=== PATIENT | male | born 1945 | race Caucasian/White ===

== ENCOUNTER 2024-06-10 05:28 | Inpatient (IN) | payer OTHER, SELFPAY ==
[2024-06-10] VITALS (55 sets, daily range): BP systolic 75–206; BP diastolic 49–184; BMI 30.9
[2024-06-10] MEDS: VERSED 5 MG IV (04:05)
--- NOTE | 2024-06-10 04:27 | ED.GENMED ---
History of Present Illness
<CHRIST Peck - Last Filed: 06/10/24 07:02>
General
Chief Complaint: Heart Rate Problem
Time Seen by Provider: 06/10/24 03:55
History of Present Illness
History of Present Illness:
Pt is a 78 yo M who presents to the emergency department via EMS for chest pain and shortness of breath. Pt was in heart block type 2 second degree. Pt was paced by EMS upon arrival to the emergency department.
Phy Exam
<CHRIST Peck - Last Filed: 06/10/24 07:02>
General Physical Exam
General Presentation: severe distress
General age: appears stated age
General Skin: warm
General Habitus: normal
General Mental: alert
General Hydration: appears well hydrated
Course
<CHRIST Peck - Last Filed: 06/10/24 07:02>
Orders/Labs/Results
Orders:
Orders
06/10/24 03:56
Cardiac Monitoring- Treatment ONCE
EKG- Treatment ONCE
06/10/24 03:58
Midazolam HCl [Versed] 5 mg .ROUTE .STK-MED ONE
06/10/24 04:00
Electrocardiogram (*1) Q3H
Reason for Study: Chest Pain
Midazolam HCl [Versed] 5 mg IV NOW STA
06/10/24 04:04
Midazolam HCl [Versed] 5 mg IV NOW STA
06/10/24 04:10
DOPamine 400 MG/D5W 250 ML [DOPamine 400 MG] 400 mg in 250 ml .ROUTE .STK-MED
06/10/24 04:11
Complete Blood Count/With Diff Urgent
Comprehensive Metabolic Panel Urgent
Magnesium Urgent
NT-proBNP Urgent
PTT Urgent
Prothrombin Time Urgent
TSH Urgent
Troponin I Urgent
06/10/24 04:15
Straight cath- Treatment ONCE
Straight Cath As Directed
Frequency: One time now
06/10/24 04:17
Urinalysis Reflex To Culture Urgent
Date Specimen was Collected: 06/10/24
Time Specimen was Collected: 04:15
Urine Drug Abuse Screen Urgent
Date Specimen was Collected: 06/10/24
Time Specimen was Collected: 04:15
Urine Microscopic Reflex Cult Urgent
Urine Culture Urgent
KEELY Source: U
Specimen Description:
Date Specimen was Collected: 06/10/24
Time Specimen was Collected: 04:15
06/10/24 04:28
HYDROmorphone [Dilaudid] 0.5 mg IV NOW STA
06/10/24 04:38
Bedside Glucose- Treatment ONCE
06/10/24 04:45
DOPamine 400 MG/D5W 250 ML [DOPamine 400 MG] 400 mg in 250 ml IV PER PROTOCOL
Initial dose in mcg/kg/min, then titrate:: 5
Titrate to keep:: Other
Titrate to keep other:: sbp >90
Titrate by mcg/kg/min:: 1-2 mcg/kg/min
Frequency of titrations (minutes):: 15
Maximum dose in ICU in mcg/kg/min:: 20
Maximum dose in IMU in mcg/kg/min:: 10
Begin to taper infusion when:: Remained at goal for 4hrs
Taper by mcg/kg/min:: 1-2 mcg/kg/min
Frequency of taper (minutes) if patient maintains goal:: 30
Taper to off?: Yes
If infusion off & no longer maintaining goal:: Contact Provider
06/10/24 05:00
Heparin 1000 Units/500 ml [Heparin] 1,000 units in 500 ml .ROUTE .STK-MED
Lidocaine HCl/Pf [Xylocaine-Mpf 1% Vial] 100 mg .ROUTE .STK-MED ONE
Abnormal Lab Results
06/10/24 06/10/24 06/10/24
04:11 04:17 04:38
RBC 4.26 L 10^6/uL
(4.70-6.10)
Hgb 12.7 L g/dL
(13.0-18.0)
Hct 38.3 L %
(39.0-52.0)
Plt Count 97 L 10^3/uL
(130-400)
Lymphocytes % 18.4 L %
(20.5-51.1)
Carbon Dioxide 21 L mmol/L
(22-30)
BUN 30 H mg/dl
(9-20)
Creatinine 2.1 H mg/dL
(0.7-1.3)
Glucose 155 H mg/dl
(70-99)
TSH 0.08 L uIU/ml
(0.47-4.68)
Ur Occult Blood Reflex 4+ A
(Negative)
Urine RBC >100 A /HPF
(0-2)
Urine WBC (Reflex) 11-15 A /HPF
(0-5)
Urine Bacteria (Reflex) Moderate A
(Negative)
Urine Albumin (Reflex) 1+ A
(Neg - Trace)
POC Glucose 150 H mg/dl
(70-99)
06/10/24 04:11
06/10/24 04:11
Vital Signs
Initial and Last Documented VS:
Initial Vital Signs
Temp Resp Pulse Ox
97.2 F 20 99
06/10/24 04:00 06/10/24 04:00 06/10/24 04:00
Last Documented Vital Signs
Temp Pulse Resp BP Pulse Ox
97.2 F 80 36 114/57 100
06/10/24 04:00 06/10/24 04:40 06/10/24 04:40 06/10/24 04:40 06/10/24 04:15
<Rivas Cummings, DO - Last Filed: 06/10/24 04:33>
Orders/Labs/Results
Orders:
Orders
06/10/24 03:56
Cardiac Monitoring- Treatment ONCE
EKG- Treatment ONCE
06/10/24 03:58
Midazolam HCl [Versed] 5 mg .ROUTE .STK-MED ONE
06/10/24 04:00
Electrocardiogram (*1) Q3H
Reason for Study: Chest Pain
Midazolam HCl [Versed] 5 mg IV NOW STA
06/10/24 04:04
Midazolam HCl [Versed] 5 mg IV NOW STA
06/10/24 04:10
DOPamine 400 MG/D5W 250 ML [DOPamine 400 MG] 400 mg in 250 ml .ROUTE .STK-MED
06/10/24 04:11
Complete Blood Count/With Diff Urgent
Comprehensive Metabolic Panel Urgent
Magnesium Urgent
NT-proBNP Urgent
PTT Urgent
Prothrombin Time Urgent
TSH Urgent
Troponin I Urgent
06/10/24 04:15
Straight cath- Treatment ONCE
Straight Cath As Directed
Frequency: One time now
06/10/24 04:17
Urinalysis Reflex To Culture Urgent
Date Specimen was Collected: 06/10/24
Time Specimen was Collected: 04:15
Urine Drug Abuse Screen Urgent
Date Specimen was Collected: 06/10/24
Time Specimen was Collected: 04:15
Urine Microscopic Reflex Cult Urgent
Urine Culture Urgent
KEELY Source: U
Specimen Description:
Date Specimen was Collected: 06/10/24
Time Specimen was Collected: 04:15
06/10/24 04:28
HYDROmorphone [Dilaudid] 0.5 mg IV NOW STA
06/10/24 04:38
Bedside Glucose- Treatment ONCE
06/10/24 04:45
DOPamine 400 MG/D5W 250 ML [DOPamine 400 MG] 400 mg in 250 ml IV PER PROTOCOL
Initial dose in mcg/kg/min, then titrate:: 5
Titrate to keep:: Other
Titrate to keep other:: sbp >90
Titrate by mcg/kg/min:: 1-2 mcg/kg/min
Frequency of titrations (minutes):: 15
Maximum dose in ICU in mcg/kg/min:: 20
Maximum dose in IMU in mcg/kg/min:: 10
Begin to taper infusion when:: Remained at goal for 4hrs
Taper by mcg/kg/min:: 1-2 mcg/kg/min
Frequency of taper (minutes) if patient maintains goal:: 30
Taper to off?: Yes
If infusion off & no longer maintaining goal:: Contact Provider
06/10/24 05:00
Heparin 1000 Units/500 ml [Heparin] 1,000 units in 500 ml .ROUTE .STK-MED
Lidocaine HCl/Pf [Xylocaine-Mpf 1% Vial] 100 mg .ROUTE .STK-MED ONE
Abnormal Lab Results
06/10/24 06/10/24 06/10/24
04:11 04:17 04:38
RBC 4.26 L 10^6/uL
(4.70-6.10)
Hgb 12.7 L g/dL
(13.0-18.0)
Hct 38.3 L %
(39.0-52.0)
Plt Count 97 L 10^3/uL
(130-400)
Lymphocytes % 18.4 L %
(20.5-51.1)
Carbon Dioxide 21 L mmol/L
(22-30)
BUN 30 H mg/dl
(9-20)
Creatinine 2.1 H mg/dL
(0.7-1.3)
Glucose 155 H mg/dl
(70-99)
TSH 0.08 L uIU/ml
(0.47-4.68)
Ur Occult Blood Reflex 4+ A
(Negative)
Urine RBC >100 A /HPF
(0-2)
Urine WBC (Reflex) 11-15 A /HPF
(0-5)
Urine Bacteria (Reflex) Moderate A
(Negative)
Urine Albumin (Reflex) 1+ A
(Neg - Trace)
POC Glucose 150 H mg/dl
(70-99)
06/10/24 04:11
06/10/24 04:11
Vital Signs
Initial and Last Documented VS:
Initial Vital Signs
Temp Resp Pulse Ox
97.2 F 20 99
06/10/24 04:00 06/10/24 04:00 06/10/24 04:00
Last Documented Vital Signs
Temp Pulse Resp BP Pulse Ox
97.2 F 80 36 114/57 100
06/10/24 04:00 06/10/24 04:40 06/10/24 04:40 06/10/24 04:40 06/10/24 04:15
<Rivas Cummings DO - Last Filed: 06/10/24 04:33>
*Critical Care Note
Total Time (30-74mins, 75-104mins- exclusive of procedures): 45
comment:
Critical care statement: A total of 45 minutes of critical care time was provided for this patient. This time is separate from time utilized to perform the aforementioned documented procedures. Aggregate critical care time includes only time
during which I was engaged in work directly related to the patient's care, as described above, whether at the bedside or elsewhere in the Emergency Department.
ED Attending Note
<CHRIST Peck - Last Filed: 06/10/24 07:02>
-
Portions of this chart may have been created with voice recognition software.� Occasional wrong word or��sound alike� substitutions may have occurred due to the inherent limitations of voice recognition software.
<Rivas Cummings DO - Last Filed: 06/10/24 04:33>
ED Attending Note
Patient seen and examined by attending physician: Yes
I performed the substantive portion of visit, reviewed & personally made and approve the management plan that is documented in note by myself or COLTON.: Yes
ED Attending Note:
This a pleasant 78-year-old male brought in by EMS for chest pain and shortness of breath. History is very limited due to patient condition. radiation control health physicist got to the hotel where the patient was staying and found patient in extremis with a heart rate in the
30s. Paramedics were summoned and after EKG was performed,
Discharge Plan
Departure
Patient Disposition: TRIMMING CUTTER
Date of Disposition: 06/10/24
Time of Disposition: 04:30
Admit to: label rewinder
Presentation/result/management discussed w/ accepting MD/DO: Dr. Luis
Condition: Serious
Discharge Problem:
Mobitz type 2 second degree heart block
Interventions
Interventions:
*Risk Screen - Suicide Last Done: 06/10/24 05:00
*General Assessment Last Done: 06/10/24 03:55
*Neglect/Abuse Screening Last Done: 06/10/24 05:00
ED- Fall Risk Assessment Last Done: 06/10/24 04:45
*ED COVID-19 Vaccine History Last Done: 06/10/24 04:07
*Nursing Disposition Last Done: 06/10/24 05:00
ED- Cardiac Assessment Last Done: 06/10/24 04:45
ED- Pulmonary Assessment Last Done: 06/10/24 04:45
Discharge Date and Time
Discharge Date/Time: 06/10/24 05:00
[2024-06-10 04:31] LABS: % Basophils 0.2 % (0-2); % Immature Granulocytes 0.5 % (0-0.5); % Lymphocytes 18.4 % (20.5-51.1); % Monocytes 6.9 % (1.7-9.3); Absolute Eosinophils 0.1 10^3/uL (0-0.7); Absolute Lymphocytes 1.5 10^3/uL (1.2-3.4); Absolute Monocytes 0.6 10^3/uL (0.1-0.6); Absolute Neutrophils 5.9 10^3/uL (1.4-6.5); Hematocrit 38.3 % (39.0-52.0); Hemoglobin 12.7 g/dL (13.0-18.0); INR 1.09; Mean Corp Hgb Conc. 33.2 g/dL (33.0-37.0); Mean Corpuscular Hgb 29.8 pg (27.0-31.0); Mean Corpuscular Volume 89.9 fL (80.0-94.0); Nucleated Red Blood Cells % 0 % (-); PT 14.5 Sec (11.4-14.6); Red Blood Cell Count 4.26 10^6/uL (4.70-6.10); Red Cell Dist. Width 13.6 % (11.5-14.5); White Blood Cell Count 8.1 10^3/uL (4.8-10.8)
[2024-06-10 04:32] LABS: APTT 30.2 Sec (23.4-35.0)
[2024-06-10] MEDS: DOPamine 400 MG 250 IV (04:36)
[2024-06-10 04:39] LABS: Urine Albumin 1+ (Neg - Trace); Urine Bilirubin Negative (Negative); Urine Character Clear (Clear); Urine Color Yellow; Urine Glucose Negative (Negative); Urine Ketone Negative (Negative); Urine Leukocyte Negative (Negative); Urine Nitrite Negative (Negative); Urine Occult Blood 4+ (Negative); Urine Urobilinogen Negative (Neg - 1+)
[2024-06-10 04:39] LABS: ALT (SGPT) 26 U/L (0-50); AST (SGOT) 27 U/L (17-59); Albumin 3.7 g/dl (3.5-5.0); Alkaline Phosphatase 70 U/L (38-126); Blood Urea Nitrogen 30 mg/dl (9-20); Calcium 8.7 mg/dl (8.4-10.2); Carbon Dioxide 21 mmol/L (22-30); Chloride 103 mmol/L (98-107); Glucose 155 mg/dl (70-99); Magnesium 1.8 mg/dl (1.6-2.3); Potassium 4.5 mmol/L (3.5-5.1); Sodium 137 mmol/L (135-145); Total Bilirubin 0.8 mg/dl (0.2-1.3); Total Protein 6.3 g/dl (6.3-8.2); eGFR 31.63
[2024-06-10 04:40] LABS: Glucose - Point of Care 150 mg/dl (70-99)
[2024-06-10 04:47] LABS: NT-proBNP 1020 pg/ml; Troponin I < 0.012 ng/ml
[2024-06-10 04:51] LABS: Amphetamines Negative (Negative); Barbiturates Negative (Negative); Benzodiazepines Negative (Negative); Buprenorphine Negative (Negative); Cocaine Negative (Negative); Marijuana Negative (Negative); Methadone Negative (Negative); Methamphetamines Negative (Negative); Opiates Negative (Negative); Phencyclidine Negative (Negative); Tricyclic Antidepressants Negative (Negative)
[2024-06-10 04:56] LABS: Urine Squamous Cell >30 /LPF (Few)
[2024-06-10 04:57] LABS: Urine Amorphous Seen; Urine Red Blood Cell >100 /HPF (0-2)
[2024-06-10 05:02] LABS: Urine Bacteria Moderate (Negative)
[2024-06-10 05:20] LABS: TSH 0.08 uIU/ml (0.47-4.68)
--- NOTE | 2024-06-10 05:37 | W.PN.UPDATE ---
Update Note
Progress Note Update
78 yo man unknown medical history (I have some kind of valve problem) BIBA after being found with slow heart rate (low 30s). EMS diagnosed mobitzII AV block and applied external pacemaker. Initial BP OK but in ER fell some and was placed on dopamine
5mcg/kg/min. Brought to cathode ray tube assembler for TPM. Apparently he was given versed 5mg, dilaudid 0.5mg and lidocaine 100mg in ER all prior to my arrival. He was somnelent in ER and did not respond to questions or commands. Unable to get informed consent for
TPM. No family present and no phone number to call.
In cathode ray tube assembler TPM placed in RV apex under sterile conditions via RFV. Threshold for capture 1mA. Pacer at V demand at 15mA.
Transferred to ICU. Dr Quezada will be admitting physician - I spoke with him and with ICU team including REGULATOR INSPECTOR.
In ICU mental status a bit better and he followed commands moving all extremities. Denied any body pain. Could not provide any further history.
Labs with normal CBC, Cr 2.1, Glu 155, trop <0.012 and TSH 0.08.
We will plan to have EP consult for PPM vs ICD when the dust settles here. If his mental status remains abnormal would check head CT.
ECHO will be done this AM.
--- NOTE | 2024-06-10 05:55 | ITS.CL.CATH ---
Operating Room Technologist - Catheterization
Cardiac Catheterization
Procedure Report:
TEMPORARY PACEMAKER PLACEMENT REPORT
Date of Procedure: 06/10/2024
Referring: Rivas Cummings DO ([facility])
Indication: High degree AV block requiring external pacemaker
�
PROCEDURE SUMMARY:
A transvenous pacemaker was placed via the right femoral vein without difficulty
�
DESCRIPTION OF PROCEDURE: The patient was brought to the Operating Room Technologist being externally paced and uncomfortable with altered mental status. Blood pressure 160/70 on dopamine 5 mcg per kilo per minute. He was being externally paced at 60. He was unable
to provide informed consent and there was no family available to give consent. I felt the procedure was emergent and we proceeded. Access was obtained via the right femoral vein with a micropuncture technique. A 6 Italian pacing catheter was
placed in the RV apex. Threshold was less than 1 mA and the device was left at 70 bpm at 15 mA on demand mode.
�
Radiation (mGy): 22
DAP (cm2.Gy): 3.2
Fluoroscopy time: 1.1 minutes
�
CONCLUSIONS: Successful placement of temporary pacemaker via right femoral vein. The patient will undergo echocardiography and will likely need either permanent pacemaker or ICD within the next 24-48 hours
�
Copy to: [facility] cardiology. Patient lives in [place]
�
Micheal Luis MD, [facility]
�
--- NOTE | 2024-06-10 06:01 | HPS.HSE ---
Family Physician
-
Family Physician: NOT KNOW UNKNOWN - PT DOES
Chief Complaint
-
Chest Pain
History of Present Illness
Patient is a 78y M with no known PMH who presents to ED via EMS in high-grade heart block with external pacing device in place on arrival. History is obtained from discussion with ED staff, Cardiology and minimal input from patient. Patient
called 911 this evening complaining of chest pain. EMS responded and found the patient to be in high-grade heart block - though awake and interactive at that time. External emergency pacing was initiated and patient was transported to the ED for
further evaluation.
Cardiology saw the patient in the ED and he was emergently taken to the lab coordinator for transvenous pacing catheter placement.
Following successful placement of TV pacer, patient was admitted to the ICU for further evaluation.
Patient is noted to be somnolent, poorly responsive in the ICU.
He will answer occasional questions - but does not open his eyes or follow most commands. He does not provide any detailed answers or any real meaningful history to add to the above.
Patient received initial Versed dose by EMS and received additional dose of Versed (5mg) here in the ED along with dose of Dilaudid (0.5mg).
Minimal history available from patient includes: 'heart problem', no prior surgeries, non-smoker, he is from [place].
He denies chest pain or dyspnea. When asked if he drinks alcohol, he does not answer.
Medical History
Past Medical History
Past Medical History: Reports Other
Additional Past Medical History:
Unknown - ? unspecified cardiac issue.
Past Surgical History: Reports None
Social History
Tobacco: Non-smoker
Family History
Family History: Unable to Obtain
Allergies / Home Medications
Allergies reflects when Allergies were last updated in [facility].
Home Medications with original date entered in [facility]
Allergy/Medication List:
Allergies
Allergy/AdvReac Type Severity Reaction Status Date / Time
No Known Allergies Allergy Unverified 06/10/24 03:54
Home Medications
Unobtainable 06/10/24
If medication reconciliation has not been performed, why?: Unresponsive
Review of Systems
-
Unable to obtain full review of systems at this time due to: Other (Encephalopathy)
History Source: Patient (Limited ROS from patient as able given lethargy.)
Respiratory: Denies Trouble Breathing
Cardiac: Denies Chest Pain
Abdomen/GI: Denies Nausea
Neurological: Denies Headache
Physical Exam
Vital Signs
Vital Signs
Temp Pulse Resp BP Pulse Ox
97.2 F 80 36 114/57 100
06/10/24 04:00 06/10/24 04:40 06/10/24 04:40 06/10/24 04:40 06/10/24 04:15
Physical Exam
General: Other (78y M sleeping / lethargic. He does answer some questions - apparently appropriately. Does not open eyes or follow commands consistently.)
HEENT: Moist mucous membranes and Other (Pupils constricted bilaterally. Neck thick. No apparent JVD.)
Respiratory: Clear; No Wheezes, Rales or Rhonchi
Cardiac: S1/S2, Regular Rhythm and Murmur (Crescendo / descrescendo murmur.)
GI: Other (Softly distended / obese abdomen. No tenderness, fluid wave. Normal bowel sounds.)
Musculoskeletal: No Clubbing, No Cyanosis and No Edema
Neuro: Other (Moves all extremities without apparent deficit. Soft spoken but seems to answer questions appropriately when he does so.)
Laboratory Results
-
06/10/24 04:11
Laboratory Results
PT 14.5 Sec (11.4-14.6) 06/10/24 04:11
INR 1.09 06/10/24 04:11
APTT 30.2 Sec (23.4-35.0) 06/10/24 04:11
Total Bilirubin 0.8 mg/dl (0.2-1.3) 06/10/24 04:11
AST 27 U/L (17-59) 06/10/24 04:11
ALT 26 U/L (0-50) 06/10/24 04:11
Alkaline Phosphatase 70 U/L (38-126) 06/10/24 04:11
Troponin I < 0.012 ng/ml 06/10/24 04:11
Impression/Plan
-
A/P: Patient is a 78y M with no known PMH who presents to ED via EMS with high-grade heart block.
High-Grade Heart Block
Hypotension
- Admitted to ICU following TV pacemaker placement in lab coordinator.
- Original EKG / tracings not available in the chart. Post-EKG shows paced rhythm with some P waves - ? 2nd / 3rd degree block.
- Monitor on tele in ICU. Maintain TV pacer at current settings pending EP evaluation.
- Echo.
- Cardiology evaluation appreciated. Follow up additional recommendations.
- Process Control Technician evaluation.
- Check Lyme, influenza, etc.
- Continue dopamine for now for BP support and wean as able.
- TFTs suggest HYPERthyroidism if anything, which is not consistent with his presentation.
- Evaluate for other potential etiologies of heart block.
Acute TME
- Patient somnolent in the ICU post-procedure.
- Did receive Versed, Dilaudid in the ED.
- Check CT head now.
- ABG, ammonia, EtOH level, etc.
- UDS was negative.
- Moving all extremities and will answer some questions if strongly encouraged.
- Follow for improvement with wash out of sedating meds, mandaen of normal HR / perfusion, etc.
- Consider Neuro evaluation if symptoms worsen or persist and above evaluation is unremarkable.
Renal Insufficiency
- SCr = 2.1 with no prior values for comparison.
- IVF support, pressor support as needed to maintain perfusion, correction of heart block as noted above.
- Follow labs over 48 hours to establish baseline and determine WILSON v CKD.
Hematuria
- UA shows gross RBCs / hematuria.
- No specific evidence of infection.
- Check renal US once above issues stabilized.
DVT Prophylaxis: SCDs
Code Status: Full
Asked patient if he had family or anyone we could call and he responded 'No'.
Has no phone in his belongings or other means of reaching contacts person / family for further information / update.
[2024-06-10 06:04] LABS: Platelet Count 97 10^3/uL (130-400)
[2024-06-10 06:05] LABS: Mean Platelet Volume 9.3 fL (7.4-10.4)
[2024-06-10 06:29] LABS: Lactic Acid 2.4 mmol/L (0.7-2.0)
[2024-06-10 06:30] LABS: Ammonia < 9 umol/L (9-30)
[2024-06-10 06:32] LABS: ALT (SGPT) 27 U/L (0-50); AST (SGOT) 29 U/L (17-59); Alkaline Phosphatase 77 U/L (38-126); Blood Urea Nitrogen 31 mg/dl (9-20); Calcium 8.9 mg/dl (8.4-10.2); Carbon Dioxide 19 mmol/L (22-30); Chloride 103 mmol/L (98-107); Estimated Creatinine Clearance 28 ml/min; Glucose 204 mg/dl (70-99); HDL Cholesterol 49 mg/dl; LDL Cholesterol, Calculated 45 mg/dl; Magnesium 1.8 mg/dl (1.6-2.3); Phosphorus 4.8 mg/dl (2.5-4.5); Potassium 4.6 mmol/L (3.5-5.1); Sodium 136 mmol/L (135-145); Total Cholesterol 122 mg/dl (50-199); Total Protein 6.8 g/dl (6.3-8.2); Triglyceride 143 mg/dl (10-149); Very Low Density Lipoprotein 28 mg/dl (0-30); eGFR 28.35
[2024-06-10 06:33] LABS: Alcohol None Detected
[2024-06-10 06:42] LABS: Troponin I < 0.012 ng/ml
--- NOTE | 2024-06-10 06:45 | PTCARENOTE ---
Retrieved pt from manager cath lab and transferred to ICU 9182. Dr Luis, LEILA and hospitalist at bedside. Pt. minimally responsive, only grunting a few words and not meaningfully answering questions. Unable to obtain medical history or answer admission
questions. Pt. with R femoral transvenous with temp pacer- ventricular rate 70, mA 15, sensitivity 1. V paced on tele, HR 70. Hypotensive upon arrival- dopamine titrated up for SBP >90. See worklist. On 2L NC, spo2 98%. Transported pt to CT scan for
head CT. Monitoring closely. B/L wrist restraints and R ankle restraint in place for safety per orders.
[2024-06-10 06:49] LABS: B.E. -8.2 mmol/L; HCO3 17.9 mmol/L (21-28); PCO2 38 mmHg (35-48); PO2 80 mmHg (83-108); pH 7.28 (7.35-7.45)
[2024-06-10] MEDS: NSS 1000 IV ×3 (07:00→15:26)
[2024-06-10 07:13] LABS: COVID-19 Antigen Negative (Negative)
--- NOTE | 2024-06-10 08:06 | CON.CAR ---
Medical History
-
History of Present Illness:
dictated. CCT 30min
Allergies / Home Medications
Allergy/AdvReac Type Severity Reaction Status Date / Time
No Known Allergies Allergy Unverified 06/10/24 03:54
�Medication �Instructions �Recorded �Confirmed �Type
aspirin 81 mg tablet,delayed 81 mg PO DAILY 06/10/24 06/10/24 History
release
finasteride 5 mg tablet 5 mg PO DAILY 06/10/24 06/10/24 History
losartan 50 mg tablet 50 mg PO BID 06/10/24 06/10/24 History
metoprolol succinate 25 mg 25 mg PO DAILY 06/10/24 06/10/24 History
tablet,extended release 24 hr
(Toprol XL)
tamsulosin 0.4 mg capsule (Flomax) 0.4 mg PO DAILY 06/10/24 06/10/24 History
Physical Exam
Vital Signs
Temp Pulse Resp BP Pulse Ox
97.5 F 69 15 115/62 97
06/10/24 07:44 06/10/24 07:15 06/10/24 07:15 06/10/24 07:15 06/10/24 07:00
Lab Results
06/10/24 04:11
06/10/24 05:58
Troponin I < 0.012 ng/ml 06/10/24 05:58
Ryo-T-Cfiyqhieheo Pept 1020 pg/ml 06/10/24 04:11
--- NOTE | 2024-06-10 08:13 | PTCARENOTE ---
report received, assessments per work list. patient initially disoriented, after interaction. patient more oriented. no memory of coming to the Hospital. able to state home medications. c/o left shoulder discomfort when moving arm(chronic). monitor
vpace, temporary settings per work list. right femoral access with TVP. site intact. good distal pulses. dopamine infusing thru right femoral line. lungs with diminished breath sounds. abdomen obese. active bowel sounds. condom cath in place.
bladder scan per work list. patient requires frequent reminders to keep right leg straight. restraints maintained for patient safety
--- NOTE | 2024-06-10 08:26 | CON.INTV ---
Consultation
Consultation Request
Date/Time Consultation Requested: 06/10/2024536
Date/Time Consultation Performed: 06/10/2024825
Requesting Provider: LEILA Vega
Performing Provider: Alvaro Maldonado MD
Reason for Consultation: High degree AVB
Medical History
-
Chief Complaint: Chest pain and weakness
History of Present Illness:
78-year-old male non-smoker with a past medical history of skin cancer s/p resection, reported history of throat cancer s/p chemo/XRT, hypertension and BPH who presents with chest pain and weakness. Per EMS, he was diagnosed with high-grade heart
block and he was transcutaneously paced en route here to the ER. Initially, he was normothermic to 97.2 �F, breathing at 20 breaths/min, BP 143/89 and saturating 99% on a nonrebreather. Initial labs showed Hb 12.7, platelet count 97, serum
bicarbonate level 19, creatinine 2.3, glucose 204, lactate 2.4, troponin negative at <0.012, proBNP 1020 and TSH 0.08. UA showed 11�15 urine WBC with moderate bacteria and urine culture was collected, and initial CXR showed clear lungs. CT head
performed due to change in mental status showing no acute intracranial abnormalities. He was started on dopamine drip and also given Versed 5 mg in the ER. He was brought to the [facility] and a right femoral vein transvenous pacemaker was inserted.
He was then transferred to the ICU for further care and software designer services consulted for additional management/recommendations.
This morning I evaluated the patient and he was resting in bed in no acute distress. He is currently on dopamine at 1mcg/kg/min. TVP in place paced at 70 bpm with mA at 15 and sensitivity set to 1. He feels well, denying chest pain, TRUJILLO, SOB,
nausea, fevers or chills.
PMHx: Hx of skin cancer s/p resection, Hx of throat s/p chemo/XRT, HTN, BPH
PSHx: Skin cancer resection
Past Medical History
Past Medical History: Other (Above as per HPI)
Past Surgical History: Other (Above as per HPI)
Social History
Tobacco: Non-smoker
Alcohol: None
Drug: None
Family History
Family History: Reviewed & Not Pertinent
Allergies / Home Medications
Allergies
Allergy/AdvReac Type Severity Reaction Status Date / Time
No Known Allergies Allergy Unverified 06/10/24 03:54
Home Medications
�Medication �Instructions �Recorded �Confirmed �Last Taken �Type
aspirin 81 mg tablet,delayed 81 mg PO DAILY 06/10/24 06/10/24 Unknown History
release
finasteride 5 mg tablet 5 mg PO DAILY 06/10/24 06/10/24 Unknown History
losartan 50 mg tablet 50 mg PO BID 06/10/24 06/10/24 Unknown History
metoprolol succinate 25 mg 25 mg PO DAILY 06/10/24 06/10/24 Unknown History
tablet,extended release 24 hr
(Toprol XL)
tamsulosin 0.4 mg capsule (Flomax) 0.4 mg PO DAILY 06/10/24 06/10/24 Unknown History
Review of Systems
-
History Source: Patient
All other systems: Negative unless noted
Vitals / Labs / Diagnostic Testing
Vital Signs
Temp Pulse Resp BP Pulse Ox
97.5 F 69 17 129/63 97
06/10/24 07:44 06/10/24 08:15 06/10/24 08:15 06/10/24 08:15 06/10/24 08:15
Lab Data
06/10/24 04:11
06/10/24 05:58
Laboratory Results
06/10/24 06/10/24
04:11 06:40
PT 14.5
INR 1.09
APTT 30.2
pH 7.28 L
pCO2 38
pO2 80 L
HCO3 17.9 L
O2 Delivery Level
Microbiology
06/10/24 08:01 Nasal Swab Influenza Types A & B (EARLENE) - Final
Negative for Influenza A & B, NAAT
Negative results must be combined with clinical observations
and patient history.
Nucleic Acid Amplification test (NAAT)performed on the
Tier 1 Performance platform.
Diagnostic Testing:
Physical Exam
-
HEENT: Normocephalic, Anicteric and Moist Mucous Membranes
Cardiovascular: S1/S2, Murmur (negative) and Peripheral Edema (negative)
Respiratory: Wheeze (negative), Rales (negative), Rhonchi (negative) and Non-Labored Respirations
GI: Soft, Non Distended, Non Tender and Normal Bowel Sounds
Neurology: Awake, Alert and Tremors (negative)
Skin: Warm and Dry
General: Respiratory Distress (negative), Comfortable, Fever (negative) and Chills (negative)
Assessment
-
Assessment: 78-year-old male non-smoker with a past medical history of skin cancer s/p resection, reported history of throat cancer s/p chemo/XRT, hypertension and BPH who presents with chest pain and weakness. Per EMS, he was diagnosed with
high-grade heart block and he was transcutaneously paced en route here to the ER. Initially, he was normothermic to 97.2 �F, breathing at 20 breaths/min, BP 143/89 and saturating 99% on a nonrebreather. Initial labs showed Hb 12.7, platelet count
97, serum bicarbonate level 19, creatinine 2.3, glucose 204, lactate 2.4, troponin negative at <0.012, proBNP 1020 and TSH 0.08. UA showed 11�15 urine WBC with moderate bacteria and urine culture was collected, and initial CXR showed clear lungs.
CT head performed due to change in mental status showing no acute intracranial abnormalities. He was started on dopamine drip and also given Versed 5 mg in the ER. He was brought to the [facility] and a right femoral vein transvenous pacemaker was
inserted. He was then transferred to the ICU for further care and software designer services consulted for additional management/recommendations.
Chronic conditions IMPORT/EXPORT ANALYST: Hx of skin cancer s/p resection, Hx of throat s/p chemo/XRT, HTN, BPH
Impression:
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
#Anemia
#Thrombocytopenia
#Metabolic acidosis with normal anion gap
#Elevated creatinine due to WILSON versus CKD (baseline unknown)
#Hyperglycemia (HbA1c: 6.7 on 06/10/2024)
#Abnormal urinalysis with 11�15 urine WBC and moderate bacteria likely due to asymptomatic bacteriuria
#Lactic acidosis
#Abnormal thyroid function tests with severely reduced TSH
#Hx of BPH
Plan:
- Continue dopamine at 1mcg/kg/min
- He is s/p TVP yesterday and is paced at 70bpm and mA at 15, sensitivity is set to 1
- Replete electrolytes with K>4, Mg>2
- Continue ASA
- Awaiting EP to evaluate the pt for permanent PPM
- Maintain SpO2 >90-94%
- Maintain MAP>65
- Trend lactate until <2mmol/L
- Trend sHCO3 level
- Although urinalysis was abnormal he remains asymptomatic; follow-up urine culture; hold off on antibiotics for now
- Trend serum WBC and monitor for fevers
- Given the severely reduced TSH, check free T4 as differential includes hyperthyroidism versus central hypothyroidism
- Maintain euglycemia with goal BG 140-180; continue low resistance ISS
- He has a condom catheter - continue I/O
- Continue proscar and flomax
- Trend H/H and transfuse if needed to keep Hb>7g/dL; keep plt>20k, unless there is concern for bleeding then keep plt>50k
- prn nebulized bronchodilators - not currently bronchospastic
- Incentive spirometer encouraged 10x per hour for at least 4 hrs a day
- DVT ppx: HSQ
Patient remains stable and once he obtains permanent pacemaker he can be downgraded to IVU. Once downgraded then we will sign off. Thank you for allowing us to be involved in the care of this patient. Please re-consult if there are any additional
questions/concerns, or if patient's respiratory status deteriorates.
Total time spent today was 78 minutes for this encounter. Time includes reviewing laboratory test/imaging results, reviewing pertinent medical records, obtaining and reviewing medical history, performing an appropriate exam, ordering medications,
tests and procedures. Time also includes documentation of this encounter, coordinating patient care and communicating with other healthcare professionals. Total time does not include separately billed tests performed on this date of service.
Data:
CXR 06/10/2024: Grossly clear lungs.
Transthoracic echocardiogram 06/10/2024:
Normal biventricular size and systolic function without regional wall motion
abnormality.
Mild concentric left ventricular hypertrophy.
Aortic valve sclerosis with a mean gradient 10 mmHg.
No prior study available for comparison.
[2024-06-10] MEDS: PROTONIX IV 40 MG IV (09:35)
[2024-06-10] MEDS: LOW STRENGTH ASPIRIN 81 MG PO (09:35)
[2024-06-10] MEDS: NSS (PRESERVATIVE FREE) 10 ML IV (09:35)
[2024-06-10 11:25] LABS: Lactic Acid 0.7 mmol/L (0.7-2.0)
[2024-06-10 11:37] LABS: Troponin I < 0.012 ng/ml
[2024-06-10 12:51] LABS: Glucose - Point of Care 132 mg/dl (70-99)
--- NOTE | 2024-06-10 12:58 | PTCARENOTE ---
Addendum entered by Mckayla Siegel RN 06/10/24 14:37:
reportcalled to IVU. cell phone is missing. security and ED notified. call to hotel staff who will call IVU if phone is found
Original Note:
report and care transfer to cath lab nurse staff
[2024-06-10 14:08] LABS: Glycohemoglobin (HgbA1c) 6.7 % (4.0-5.6)
--- NOTE | 2024-06-10 14:37 | ITS.CL.PACE ---
Telephone Solicitor - Pacemaker Implant
Pacemaker Implant
Procedure Report:
Conduction system pacing Permanent Pacemaker Placement:
78 yrs old man with CHB s/p temporary pacemaker wire placed is here for permanent pacemaker placement.
Indications:
Third degree heart block
Date of the Procedure:
06/10/24
Pre-Operative Diagnosis: Complete AV block
Post-Operative Diagnosis: Complete AV block
Procedure Performed: Conduction system pacing permanent pacemaker
Performing Physician:
Denton Mcwilliams MD
Anesthesia:
See anesthesia report.
Detailed Description of the Procedure:
The patient was identified using hospital identification and informed consent obtained for the procedure. The risks were explained to the patient and the family including, but not limited to: Bleeding, infection, arrhythmia, stroke,
vascular/cardiac/lung puncture, surgery, pacemaker dependency/device malfunction. All questions were answered.
A surgical pause was performed in accordance with hospital regulations. Anesthesia service provided sedation as reported separately. Antibiotics administered IV for risk of bacterial colonization. After obtaining informed and written consent, the
patient was brought to the electrophysiology laboratory.
The initial rhythm was RV paced rhythm with dissociated sinus.
The procedure site was meticulously prepared with surgical scrub and allowed to dry with no pooling. Sterile draping was applied to cover the procedure site. The image intensifier was draped with sterile bag and positioned over the patient.
A surgical pause and time out was performed immediately prior to the procedure with review of her medical history, recent labs, allergies and medications with site of procedure identified and consent noted in the chart. Antibiotics pre operatively
given. All team members concurred.
The left infraclavicular region was prepped and draped in the usual sterile fashion. Local anesthesia was administered subcutaneously using 1% lidocaine / Bupivacaine. The left cephalic vein cutdown was performed with an incision at the
delto-pectoral groove, and vascular sheath was introduced for lead access.
A subcutaneous pocket was created with blunt dissection and use of electrocautery. Hemostasis was excellent.
The guide wire was advanced to the RA and was advanced to the RV. The preformed curved long hemostatic peel away HIS sheath was advanced into the RV cavity. A left bundle pacing wire was advanced into the sheath to the tip with ventricular signals
noted with unipolar manner. The cardiac anatomy was significant rotated.
The HIS location was identified under guidance of the fluoroscopy and the pacing wire signals. The sheath with the pacing lead was moved deeper into the RV cavity on the septum at a more inferior and distal to the HIS signals.
Once adequate signals were noted on the electrograms of the pacing lead in the sheath with W pattern signals on the RV septum, the lead was advanced and clockwise turns were done under fluoroscopic guidance. The septum was engaged and the lead was
paced intermittently after every 2-3 turns. The Impedance of the lead was measured that remained stable around 800 Ohm and the lead was not able to advance into the septum. The pacing signals from the lead showed only RV septal pacing, though narrow
but not left bundle pacing. This was thought to be due to the entanglement effect of the lead to the septal endocardium. The decision was made to remove the lead and relocate to another locations.
A different locations were tested for LBB pacing with either high threshold or poor pacing morphology with failure to advance the pacing lead deep into the septum.
Finally another septal location was identified with adequate signals noted on the pacing leads and good flouroscopic location. There was sheath approximation confirmed on AZERI view and the pacing lead was advanced with clockwise turns into the septal
location. The septum was successfully engaged. The lead was paced and septal pacing was noted. The sheath was placed again to the septum and the lead was advanced 2-3 turns with pacing with each advancement. The ventricular capture was monitored
throughout and the captures gradually changed from RV pacing to non-selective pacing to LBB pacing with R wave on V1 morphology. �
The long guiding sheath was cut and removed from the RV without change in lead position, impedance, sensing, or capture. The lead was sutured to the underlying pectoralis fascia with 0-silk stitches.
Then the attention was given to atrial lead. Atrial active lead was placed in the RA and into the RAA. There were excellent impedance and thresholds.
The leads were attached to the pulse generator in standard configuration with acceptable sensing and threshold parameters. The pocket was irrigated with antibiotic solution; the pocket was inspected with no active bleeding noted. The device and the
leads were placed in the pocket.
Deep subcutaneous tissues were closed with three layers of 2-0 V loc sutures; and the dermis was reopposed using a running 4-0 Vloc subcuticular suture.
A pressure dressing was applied. Sponge counts / sharp counts were appropriate.
Procedure End:
The procedure was tolerated well. Aquacel bandaged was applied.
The temporary wire was removed without moving any new leads. The venous sheath was also removed with manual compression applied for hemostasis.
Estimated Blood loss:
5 cc
Specimens Removed:
No cultures and no specimens were obtained. No intraoperative pathology was identified.
Urine output:
None
Packs / Drains/ Tubes:
None
Instrument / Sponge Count Correct:
Yes
Flouro time:
4.5min / 20.3mGy
Complications of the Procedure:
None
Condition of Patient at Time of Transfer:
Hemodynamically stable with no neurological or vascular compromise.
Device information:�
Generator: User[employer] Live Chat; Model: [id number]; Serial # [id number]�
����������� RA pacing lead: User[employer] Live Chat; Model: 5076-52; Serial # [id number]
����������� Measured data on the RV lead was sensing of 2.7 mV of flutter waves, impedance of 450 ohms and threshold of 0.4 V at 0.4ms. �
����������� RV LBB pacing lead: [employer]onic; Model: 3830-69; Serial # [id number]
����������� Measured data on the RV lead was sensing of 12mV, impedance of 850 ohms and threshold of 0.5 V at 0.4ms�
PROGRAMMING PARAMETERS:�
Jaiden parameter settings were DDD 60-130 �
����������� Paced AV interval: 180ms
����������� Sensed AV interval: 150 ms.
����������� Rate Adaptive A-V Interval: off
Mode switch ON
�
Summary:
Successful implantation of MRI compatible dual chamber conduction system pacing permanent pacemaker.
Results/Recommendations:
-Please follow up CXR�
1. Please provide patient with adequate pain control�
Instructions to be given to patient:�
- Please follow up with [facility] at [address] [place] [address] ([phone]) to get your wound checked in 2 weeks of your discharge. Then follow with
- Do not wet incision site until after it is evaluated at cardiology clinic. No baths or showers until then. Sponge baths / showers are OK but dab dry the dressing after it is wet.�
- Allow 'steri strips' to fall off on their own�
- Do not lift left elbow above shoulder, particularly with sudden jerking movements, for 1 month�
- Do not lift anything weighing more than 5 pounds with the left arm for 1 month�
- If you notice any fevers, shortness of breath, lightheadedness, chest pain, or worsening swelling in the wound site, please contact the arrhythmia clinic, contact your shoemaking finisher, or present to the hospital for evaluation.�
Denton Mcwilliams MD
Electrophysiology
--- NOTE | 2024-06-10 14:49 | CM ---
CMM following re: discharge planning.
Discussed in rounds, reviewed pt's chart, met with pt.
Pt is a 78 year old male, admitted with primary dx of Chest pain. Cardiac cardiac catheterization technician today.
Pt lives in an apartment in [facility], was staying in a hotel here in [place] and lost his phone in an ambulance or left his phone in the hotel and pt has all phone numbers in the phone book.
CM called [facility] police department [phone], asked for wellness checks at pt's apartment to get family/friends phone numbers and p[er [facility] police policy a local police department only can request it.
CM called [place] police department, spoke to officer Michel and he stated he will call [facility] police department to help with obtaining phone numbers for pt's family/friends.
Per RN, hotel staff will check pt's room in attempt to locate pt's phone and [facility]
Awaiting for responses of the request.
D/C plan: uncertain at this time and will depend on pt's progress.
CM will follwo with discharge plan updates as hospitalization progresses
--- NOTE | 2024-06-10 15:07 | PTCARENOTE ---
Addendum entered by Rehan Santos RN 06/11/24 08:21:
Patient received from the cath lab manager. Drowsy, opens eyes when asked, falling back to sleep. He is alert to name, knows he in the ICU, its June 2025. Right groin site CDI with dry sterile dressing, left chest wall dressing secure with pressure
dressing and left arm immobilizer. AV paced in the 60's, bed alarm in place for safety. Right leg soft limb restraint removed.
Addendum entered by Rehan Santos RN 06/10/24 17:08:
Patient received from the cath lab manager. Drowsy, opens eyes when asked, falling back to sleep. He is alert to name, knows he in the ICU, its June 2025. Right groin site CDI with dry sterile dressing, left chest wall dressing secure with pressure
dressing and left arm immobilizer. AV paced in the 60's, bed alarm in place for safety.
Original Note:
Patient received from the cath lab manager. Drowsy, opens eyes when asked, falling back to sleep. He is alert to name, knows he in the ICU, its June 2025. Right groin site CDI with dry sterile dressing, left chest wall dressing secure with pressure
dressing and left arm immobilizer. A-paced in the 60's, bed alarm in place for safety.
[2024-06-10 15:40] LABS: Lyme Antibody Screen, EIA Negative (Negative)
--- NOTE | 2024-06-10 15:56 | W.PN.HOSP.TC ---
Today's Communication/Plan
-
Pacemaker placement
Remains critically ill secondary to high-grade heart block and hemodynamic instability requiring pressors.
Total Critical Care Time__45___ minutes. I was immediately available to the patient and staff. I personally examined, reviewed labs, diagnostic images/reports, interpretations, treatment plans, discussed patient care with other providers and
family or caregivers (if patient is unable to make decisions), entered orders as appropriate and documented the medical record.
Assessment / Plan
Assessment / Plan
Impression:
Patient is a 78y M with no known PMH who presents to ED via EMS with high-grade heart block.
Syncope secondary to high-grade heart block
Cardiogenic shock secondary to above.
Acute metabolic encephalopathy secondary to above.
WILSON secondary to prerenal stimuli and hypotension.
Metabolic acidosis
Hematuria
Other conditions:*
Essential hypertension.
History of mesothelioma status post chemotherapy and XRT.
Diabetes.
Plan:
High-grade heart block causing syncope and cardiogenic shock with hypotension requiring vasopressors.
Status post temporary pacemaker placement upon admission with plan for permanent pacemaker placement on 06/10.
TSH within normal limits
Echocardiogram pending
Lyme pending.
Reassess hemodynamics and wean off vasopressors post pacemaker placement.
Acute TME secondary to cardiogenic shock/high-grade heart block.
CT scan of the head with no acute abnormalities.
Urine drug screen is negative.
Mental status improved with improved hemodynamics.
Acute kidney injury secondary to hypotension baseline creatinine 2.1.
Metabolic acidosis
Continue IV fluids.
Hold antihypertensives including Toprol and losartan.
Follow BMP
Hematuria
Monitor for retention.
US:1. Suspected mass within the left side of the bladder, measuring 2.9 cm in greatest dimension. Further evaluation may be obtained with CT urogram and/or cystoscopy.
2. Elevated postvoid residual within the bladder, consistent with urinary retention.
3. No hydronephrosis of either kidney. Large renal cysts on each side as above.
Urology evaluation once hemodynamically stable
BPH
Preadmission regimen including finasteride and Flomax
Diabetes type 2.
Obesity with BMI of 30.
Hemoglobin A1c 6.7.
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
Continue serial Accu-Cheks/basal bolus protocol.
Anticipated Discharge: 24 - 48 hours
Subjective/Interval History
-
Date of Service: June 10, 2024
Objective Data
-
Labs:
Laboratory Results
06/10/24 06/10/24 06/10/24
04:11 05:58 06:40
WBC 8.1
Hgb 12.7 L
Hct 38.3 L
Plt Count 97 L
PT 14.5
INR 1.09
APTT 30.2
HCO3 17.9 L
Sodium 137 136
Potassium 4.5 4.6
Chloride 103 103
Carbon Dioxide 21 L 19 L
BUN 30 H 31 H
Creatinine 2.1 H 2.3 H
Glucose 155 H 204 H
Calcium 8.7 8.9
Total Bilirubin 0.8 1.0
AST 27 29
ALT 26 27
Alkaline Phosphatase 70 77
Vital Signs:
Vital Signs
Temp Pulse Resp BP Pulse Ox
97.4 F 69 18 121/87 96
06/10/24 14:58 06/10/24 13:00 06/10/24 14:58 06/10/24 13:00 06/10/24 14:58
I&O
06/09/24 06/10/24 06/11/24
06:59 06:59 06:59
Intake Total 1552.8 / 1552.8
Output Total 850 / 850
Balance 702.8 / 702.8
Physical Exam
-
General: Well Developed and No Apparent Distress
HEENT: Normocephalic, Atraumatic and Moist Mucous Membranes
Respiratory: Clear to Auscultation
Cardiac: Regular Rhythm and S1/S2; Negative Murmur, Rub or Gallop
GI: Soft, Nontender, Nondistended and Normal Bowel Sounds; Negative Organomegaly
Rectal: Deferred by Provider
Musculoskeletal: No Clubbing, No Cyanosis and No Edema
Skin: Negative Rash
Neuro: Nonfocal/Grossly Intact
--- NOTE | 2024-06-10 16:47 | PTCARENOTE ---
Patient more alert. He is AO x3, normal conversation. Able to tell me his phone number to locate his phone at the hotel with all of his emergency contact information. Regular diet ordered, condom catheter in place with light pink urine. Transport
called for his CXR
[2024-06-10 17:38] LABS: Glucose - Point of Care 128 mg/dl (70-99)
[2024-06-10 18:46] LABS: Troponin I 0.055 ng/ml
[2024-06-10 22:35] LABS: Glucose - Point of Care 203 mg/dl (70-99)
[2024-06-11] VITALS (8 sets, daily range): BP systolic 136–176; BP diastolic 77–82; PULSE 60–61; O2SAT 98; BMI 30.6
[2024-06-11] MEDS: NSS 1000 IV (01:21)
[2024-06-11 04:34] LABS: Magnesium 1.9 mg/dl (1.6-2.3); Phosphorus 3.7 mg/dl (2.5-4.5)
[2024-06-11 04:40] LABS: % Basophils 0.1 % (0-2); % Immature Granulocytes 0.4 % (0-0.5); % Monocytes 6.2 % (1.7-9.3); % Neutrophils 82.3 % (42.2-75.2); Absolute Lymphocytes 0.9 10^3/uL (1.2-3.4); Absolute Monocytes 0.5 10^3/uL (0.1-0.6); Absolute Neutrophils 6.4 10^3/uL (1.4-6.5); Hematocrit 36.9 % (39.0-52.0); Hemoglobin 12.4 g/dL (13.0-18.0); Mean Corp Hgb Conc. 33.6 g/dL (33.0-37.0); Mean Corpuscular Hgb 29.7 pg (27.0-31.0); Mean Corpuscular Volume 88.3 fL (80.0-94.0); Mean Platelet Volume 9.7 fL (7.4-10.4); Nucleated Red Blood Cells % 0 % (-); Platelet Count 92 10^3/uL (130-400); Red Blood Cell Count 4.18 10^6/uL (4.70-6.10); White Blood Cell Count 7.7 10^3/uL (4.8-10.8)
[2024-06-11 04:50] LABS: Free T4 0.75 ng/dl (0.78-2.19)
--- NOTE | 2024-06-11 05:49 | PTCARENOTE ---
Pt received from previous RN. Pt AAOx3 and appropriate to situation. Denies pain. R groin site c/d/i, L chest wall pressure dressing c/d/i both with no complications noted. LUE immobilizer in place. NSS infusing at 100ml/hr per order. Pt
ambulating to bathroom with x1 assist. Plan of care for shift discussed and pt verbalizes understanding. Call simpson within reach.
[2024-06-11] MEDS: LOW STRENGTH ASPIRIN 81 MG PO (08:16)
[2024-06-11] MEDS: PROSCAR 5 MG PO (08:16)
[2024-06-11] MEDS: FLOMAX 0.4 MG PO (08:16)
[2024-06-11 08:55] LABS: Glucose - Point of Care 123 mg/dl (70-99)
[2024-06-11] MEDS: NOVOLOG FLEXPEN-LOW RESISTANCE SC (08:55)
--- NOTE | 2024-06-11 09:10 | PTCARENOTE ---
Assumed care at 0700. Patient AO x3. AV paced HR 60. VSS, urinal within reach. Left chest wall Aquacel dressing CDI. Abdomen large and soft. call simpson in reach
--- NOTE | 2024-06-11 09:36 | W.PN.CD ---
Today's Communication / Plan
-
- Stable for discharge from cardiac stand point.
Impression / Plan
-
78-year-old male non-smoker with a past medical history of skin cancer s/p resection, reported history of throat cancer s/p chemo/XRT, hypertension and BPH with complete heart block s/p temp wire placed and subsequently PPM placed with removal of
the temp wire.
Complete heart block
- s/p conduction system PPM in place
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
- Travelling to [facility].
- Off pressors with adequate BP with A sensed and V paced rhythm.
PPM
- site looks good
- Pressure dressing removed
- Telemetry showed A sensed and V paced rhythm.
Hypothyroidism
- FT4 is 0.75 at borderline low and low TSH
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
- Replacement as needed by PCP.
Physical Exam
Vital Signs/Labs
Vital Signs
Temp Pulse Resp BP Pulse Ox
97.7 F 62 16 161/82 97
06/11/24 04:01 06/11/24 08:12 06/11/24 08:25 06/11/24 08:12 06/11/24 08:25
06/10/24 06/11/24 06/12/24
06:59 06:59 06:59
Actual Weight 89.3 kg 88.5 kg
06/11/24 03:28
06/10/24 05:58
PT 14.5 Sec (11.4-14.6) 06/10/24 04:11
INR 1.09 06/10/24 04:11
APTT 30.2 Sec (23.4-35.0) 06/10/24 04:11
Magnesium 1.9 mg/dl (1.6-2.3) 06/11/24 03:28
Triglycerides 143 mg/dl (10-149) 06/10/24 05:58
LDL Cholesterol, Calc 45 mg/dl 06/10/24 05:58
VLDL Cholesterol, Calc 28 mg/dl (0-30) 06/10/24 05:58
HDL Cholesterol 49 mg/dl 06/10/24 05:58
TSH 0.08 uIU/ml (0.47-4.68) L 06/10/24 04:11
Free T4 0.75 ng/dl (0.78-2.19) L 06/11/24 03:28
06/10/24
04:11
Dur-R-Ustnrbebzby Pept 1020
LAB Results
06/10/24 06/10/24 06/10/24
04:11 05:58 11:01
Troponin I < 0.012 < 0.012 < 0.012
06/10/24 06/11/24
18:09 03:28
Troponin I 0.055 H* D 0.050 H*
Physical Exam
Constitutional: No acute distress and Comfortable
EENT: Anicteric and Moist mucous membranes
Cardiovascular: Rhythm & rate is regular, Pedal edema is absent and JVD pressure is normal
Respiratory: Respiratory effort normal, Lungs clear to auscul. and Wheeze Absent
GI: Soft, Distention absent and Non tender
Neuro/Psych: Alert, Oriented and AO x 3
Other: Cardiac Device Site
Data Reviewed
-
Date of Service: June 11, 2024
Medical Decision Making: Reviewed Test Results
EKG: Tracing Personally Visualized and interpreted
X-Ray/CT/US/MRI/NUC/PET: Image Personally Visualized and interpreted
Medical Tests (PFT, Pathology etc): Discussed with Patient
Labs: Labs Reviewed by me
Old Records: Reviewed
--- NOTE | 2024-06-11 10:40 | PN.CDI ---
CDI
- -
CDI:
Physician Documentation Request
Admit Date: 06/10/24 05:28
Dear Doctor Jayy,
06/10 hospitalist progress note contains a diagnosis of 'acute metabolic encephalopathy', further down in the same note it states ' Acute TME secondary to cardiogenic shock/high-grade heart block'
In an attempt to clarify potentially conflicting documentation, please clarify the type of encephalopathy:
Acute Toxic metabolic
Acute Metabolic
Other
Use of terms such as suspected, likely, concern for, or probable (associated with a specific diagnosis that is being evaluated, monitored, or treated as if it exists) are acceptable and can be coded in the inpatient setting, when documented at the
time of discharge.
Thank you,
Laney Martinez RN, BSN
CDI Specialist
tiger text
Please use your independent medical judgment in providing your response.
--- NOTE | 2024-06-11 10:47 | PN.CDI ---
CDI
- -
CDI:
Physician Documentation Request
Admit Date: 06/10/24 05:28
Dear Doctor Jayy,
Patient presented to with high degree AV block. 06/10 Patient had a temporary pacemaker placed followed by a permanent pacemaker.
Troponin's resulted as follows:
Laboratory Tests
06/10/24 06/10/24 06/11/24
11:01 18:09 03:28
Troponin I < 0.012 0.055 H* D 0.050 H*
Could you please provide a diagnosis that supports the above lab abnormalities and additional evaluation, monitoring :
non ischemic myocardial injury
Type II IL demand ischemia
Other
Use of terms such as suspected, likely, concern for, or probable (associated with a specific diagnosis that is being evaluated, monitored, or treated as if it exists) are acceptable and can be coded in the inpatient setting, when documented at the
time of discharge.
Thank you,
Laney Martinez RN, BSN
CDI Specialist
tiger text
Please use your independent medical judgment in providing your response.
--- NOTE | 2024-06-11 10:51 | PN.CDI ---
CDI
- -
CDI:
Physician Documentation Request
Admit Date: 06/10/24 05:28
Dear Doctor Jayy,
06/10 progress note states 'Acute kidney injury secondary to hypotension baseline creatinine 2.1'
Creatinine resulted as follows:
Laboratory Tests
06/10/24 06/10/24
04:11 05:58
Creatinine 2.1 H 2.3 H
Criteria for WILSON*
1 Increase in serum creatinine by > or = to 0.3 mg/dL (> or = to 26.5 micromol/L) within 48 hours, OR
2 Increase in serum creatinine to > or = to 1.5 times baseline, which is known or presumed to have occurred within 7 days, OR
3 Urine volume < 0.5 nL/kg/hour for six hours
Based on the above information and the recognized standard for WILSON could you please verify this diagnoses is still accurate and reflective of the patient�s condition to ensure quality of the medical record.
Please clarify in the Progress Notes:
�WILSON is/was present and is a clinical diagnosis based on (please include this additional support in the medical record)
�After study WILSON has been ruled out
�Other
Use of terms such as suspected, likely, concern for, or probable (associated with a specific diagnosis that is being evaluated, monitored, or treated as if it exists) are acceptable and can be coded in the inpatient setting, when documented at the
time of discharge.
Thank you,
Laney Martinez RN, BSN
CDI Specialist
tiger text
Please use your independent medical judgment in providing your response.
--- NOTE | 2024-06-11 11:24 | CM ---
spoke to pt in room, he is [employer], his phone and all his clothes were dropped off this am by security. they picked up his belonings at the hotel in [place]. dc plan is home when medically stable.
[2024-06-11 13:03] LABS: Glucose - Point of Care 177 mg/dl (70-99)
[2024-06-11] MEDS: NSS IV (13:45)
[2024-06-11] MEDS: NOVOLOG FLEXPEN-LOW RESISTANCE 1 UNITS SC (13:49)
--- NOTE | 2024-06-11 15:52 | W.DS.TRANS ---
DC Summary - [facility]
-
Discharge Instructions:
Discharge Diagnosis/Procedures Pacemaker implant
Complete heart block.
Driving Restrictions No driving for 1 week
Instructions:
Stand-Alone Forms: DC Inst - Implanted Device
Changes to Home Medications: No
Discharge Medications:
DC Medications w/original date entered in [facility]
aspirin 81 mg tablet,delayed release 81 mg PO DAILY Blood Clot Prevention/Tx 06/10/24
atorvastatin 40 mg tablet 40 mg PO HS High Cholesterol 06/10/24
finasteride 5 mg tablet 5 mg PO DAILY Urinary Issue 06/10/24
losartan 50 mg tablet 50 mg PO BID Blood Pressure 06/10/24
metoprolol succinate 25 mg tablet,extended release 24 hr (Toprol XL) 25 mg PO DAILY Blood Pressure 06/10/24
tamsulosin 0.4 mg capsule (Flomax) 0.4 mg PO BID Urinary Issue 06/10/24
Home Medication Changes
Pending Results: No
[2024-06-11 16:48] LABS: Blood Urea Nitrogen 29 mg/dl (9-20); Carbon Dioxide 18 mmol/L (22-30); Chloride 110 mmol/L (98-107); Estimated Creatinine Clearance 43 ml/min; Glucose 134 mg/dl (70-99); Potassium 4.3 mmol/L (3.5-5.1); Sodium 145 mmol/L (135-145); eGFR 47.36
--- NOTE | 2024-06-11 17:23 | PTCARENOTE ---
BMP collected. Improved patient ok for discharge. Took on Metoprol and losartan prior to discharge, physician aware. Friend transporting home to his home tonight. Instructions reviewed, verbalized understanding. Patient escorted to main lobby by
wheelchair to car.
== END 2024-06-11 17:28 | disposition home or self-care (01) | DRG 242 ==
LOC: IVU 05:28
PROVIDERS: Hospitalist; Internal Medicine Cardiovascular Disease; Nurse Practitioner Family; Nurse Practitioner Gerontology; ADMITTING PHYSICIAN Internal Medicine Cardiovascular Disease; ATTENDING PHYSICIAN Internal Medicine; EMERGENCY PHYSICIAN Student in an Organized Health Care Education/Training Program; OTHER PHYSICIAN Internal Medicine Critical Care Medicine
PROC: 02PA3MZ Removal of Cardiac Lead from Heart, Percutaneous Approach (ICD-10-PCS; 2024-06-10)
PROC: 02HK3JZ Insertion of Pacemaker Lead into Right Ventricle, Percutaneous Approach (ICD-10-PCS; 2024-06-10)
PROC: 02H63JZ Insertion of Pacemaker Lead into Right Atrium, Percutaneous Approach (ICD-10-PCS; 2024-06-10)
PROC: 5A1223Z Performance of Cardiac Pacing, Continuous (ICD-10-PCS; 2024-06-10)
PROC: 0JH606Z Insertion of Pacemaker, Dual Chamber into Chest Subcutaneous Tissue and Fascia, Open Approach (ICD-10-PCS; 2024-06-10)
DX: I44.2 Atrioventricular block, complete (principal); G93.41 Metabolic encephalopathy; R57.0 Cardiogenic shock; E87.20 Acidosis, unspecified; N17.9 Acute kidney failure, unspecified; I5A Non-ischemic myocardial injury (non-traumatic); R31.9 Hematuria, unspecified; D64.9 Anemia, unspecified; D69.6 Thrombocytopenia, unspecified; E11.649 Type 2 diabetes mellitus with hypoglycemia without coma; I10 Essential (primary) hypertension; E66.9 Obesity, unspecified; E07.81 Sick-euthyroid syndrome; N40.0 Benign prostatic hyperplasia without lower urinary tract symptoms; Z68.30 Body mass index [BMI] 30.0-30.9, adult; Z92.3 Personal history of irradiation; Z92.21 Personal history of antineoplastic chemotherapy; Z85.831 Personal history of malignant neoplasm of soft tissue; Z11.52 Encounter for screening for COVID-19; Z85.828 Personal history of other malignant neoplasm of skin
CPT/HCPCS: 33208; 33210; 36600; 51701; 70450; 71045; 76770; 80048; 80053; 80061; 80306; 81003; 81015; 82077; 82140; 82805; 82962; 83036; 83605; 83735; 83880; 84100; 84439; 84443; 84484; 85025; 85610; 85730; 86618; 87070; 87086; 87502; 87811; 93005; 93306; 96374; 96375; 97162; 97166; 99291; C1769; C1785; C1887; C1892; C1894; C1898